=== PATIENT | male | born 1975 | race Caucasian/White ===

== ENCOUNTER 2022-02-06 08:45 | Emergency (ER) | payer OTHER ==
[~2022-02-06] VITALS: Ht 182.9 cm; Wt 99.0 kg
[2022-02-06 10:57] VITALS: BP 148/94
== END 2022-02-06 11:03 | disposition home or self-care (01) | DRG 563 ==
LOC: ED 08:45
DX: S63.92XA Sprain of unspecified part of left wrist and hand, initial encounter (principal); W20.8XXA Other cause of strike by thrown, projected or falling object, initial encounter